=== PATIENT | female | born 1955 | race Two or more races ===

== ENCOUNTER → 2018-08-06 | Outpatient (CLI) | END | disposition home or self-care (01) ==

== ENCOUNTER → 2018-11-15 | Outpatient (CLI) | payer OTHER ==
[~2018-11-15] MED LIST: ASPI-1044 PO; ATEN50TA PO; GABA300C16 PO; LEVE100018 PO; LEVE500S8 PO; NAPR-685 PO; TYL500 PO
--- NOTE | 2018-11-15 10:27 | CONS ---
Date/Time of Note Date/Time of Note DATE: 11/15/18 TIME: 10:18 Assessment/Plan Assessment/Plan Hospital Course This is a 63-year-old female with end-stage arthritis of her right knee. This is a valgus deformity. She has failed conservative treatment including anti- inflammatories and injections and activity modification. She would like to proceed with surgery. She has already had her preoperative labs drawn yesterday. She is scheduled to see her PCP early next week. I would like her to follow-up next week to review her preoperative labs and preop clearance. At that time she will also get full length x-rays for preoperative planning. Plan: PCP note and labs should be faxed to our office for my review Patient should follow-up next Monday for preoperative appointment and full length x-rays. Plan for surgery generator Consultation Date/Type/Reason Admit Date/Time Date of Consultation: Nov 15, 2018 Reason for Consultation Right knee right knee pain Hx of Present Illness Is a 63-year-old female with a chief complaint of right knee pain. She was originally seen by my partner however secondary to scheduling issues her surgery needed to be significantly postponed and I was asked if I would take over her care. The pain began approximately years ago. The patients pain is in the medial and lateral aspect of the right knee. Pain is not radiating to the lower leg. The pain is rated as a 510/10. Patient denies complaints of numbness or tingling. The pain is exacerbated by climbing stairs and ambulation. Pain is not relieved by NSAID's. Patient has been taking naproxen on a p.r.n. basis as well as using ice. Duration: Years Injury: No Walking tolerance: Limited Limp: Yes Support: No Swelling: yes Crepitation: Yes Instability: No Stairs: Difficult Physical Therapy: No Injections: In the past. Last injection greater than 6 months ago with minimal relief. NSAIDs: Naproxen Prior surgery: No Back pain: No Hip pain: No Risk of AVN : No Patient denies fever, chills, shortness of breath, chest pain, nausea/vomiting, constipation, diarrhea, numbness, and tingling. Past Medical History Hypertension Stroke at least 20 years ago Seizure disorder Past Surgical History Past Surgical Hx: noncontributory Family History Significant Family History: no pertinent family hx Social History Alcohol Use: none Smoking Status: Never smoker Drug Use: none Exam/Review of Systems Vital Signs Vitals Weight: 198 pounds Height: 5 foot 3 inches BMI: 35.1 Temperature: 98.6 Heart Rate: 70 Blood Pressure: 140/68 Respiratory Rate: 12 Exam General: Alert, oriented x3. No Acute Distress. Heart: Regular rate and rhythm. Lungs: No respiratory distress. No accessory muscle use. Musculoskeletal: Right Knee This is a well developed obese female who is alert, oriented times three and in no apparent distress. Skin is intact over the right knee as well as the lower extremity with no abrasi ons, lacerations, or ulcerations. Observation of the patient's gait reveals an antalgic gait with Valgus thrust. Frontal plane alignment is valgus. Deformity is correctable. There is pain on palpation of medial and lateral joint line. The patient demonstrates grinding anteriorly with ROM. Range of motion: 5 extension to approximately 100 degrees of flexion. Collateral ligament testing reveals no instability with varus or valgus stress at 0 and 30 degrees of flexion. MCL with good endpoint. Negative Doug's and negative posterior drawer. Neurovascularly intact with 5/5 EHL/tibialis anterior/gastroc. Sensation intact to light touch in a sural, saphenous, deep peroneal, superficial peroneal, medial and lateral plantar nerve distribution. Palpable, symmetric dorsalis pedis and posterior tibial pulses in both lower extremities. Hip examination normal. Imaging Imaging The patient previously received a standard set of films today that were personally reviewed today. Imaging included a standing knee AP, PA flexion, merchant views and a dedicated lateral of the affected knee: There is valgus alignment of the knee. There is complete loss of joint space lateral compartment and moderate loss in the patellofemoral and medial co mpartment(s). There is osteophyte formation. There is subchondral sclerosis. There are subchondral cysts. Degenerative changes are most severe in the lateral compartment(s) WAI PÉREZ MD Nov 15, 2018 10:27
== END | disposition home or self-care (01) ==
LOC: HKI 08:51
PROVIDERS: ATTEND Orthopaedic Surgery Adult Reconstructive Orthopaedic Surgery
DX: M13.861 Other specified arthritis, right knee (principal); M21.061 Valgus deformity, not elsewhere classified, right knee
CPT/HCPCS: G0463

== ENCOUNTER → 2018-11-23 | Outpatient (CLI) | payer OTHER ==
--- NOTE | 2018-11-23 14:19 | CONS ---
Consult Date/Type/Reason Admit Date/Time Initial Consult Date Date/Time of Note DATE: 11/23/18 TIME: 14:16 Ajit Sal is here today with osteoarthritis of the right knee. The patient has been having problems for the last several years. The patient rates the pain 8/10. The patient has failed conservative therapy. The patient is here for a preoperative visit. Face to Face Evaluation For Home Health Care: This is to certify that after date of planned surgery patient will be in need of intermittent intermediate care, physical therapy and/or occupational therapy as patient will be home bound. This patient is under my care and I have authori zed the services on this plan of care and will periodically review the plan. Objective Exam General: Alert, oriented x3. No Acute Distress. Heart: Regular rate and rhythm. Lungs: No respiratory distress. No accessory muscle use. Musculoskeletal: Right Knee This is a well developed obese female who is alert, oriented times three and in no apparent distress. Skin is intact over the right knee as well as the lower extremity with no abrasions, lacerations, or ulcerations. Observation of the patient's gait reveals an antalgic gait with Valgus thrust. Frontal plane alignment is valgus. Deformity is correctable. There is pain on palpation of medial and lateral joint line. The patient demonstrates grinding anteriorly with ROM. Range of motion: 5 extension to approximately 100 degrees of flexion. Collateral ligament testing reveals no instability with varus or valgus stress at 0 and 30 degrees of flexion. MCL with good endpoint. Negative Doug's and negative posterior drawer. Neurovascularly intact with 5/5 EHL/tibialis anterior/gastroc. Sensation intact to light touch in a sural, saphenous, deep peroneal, superficial peroneal, medial and lateral plantar nerve distribution. Palpable, symmetric dorsalis pedis and posterior tibial pulses in both lower extremities. Hip examination normal. Assessment/Plan Hospital Course (Demo Recall) the patient has osteoarthritis of the right knee involving primarily the lateral compartment(s). The patient has failed conservative treatment. Medical Clearance pending. Preop labs reviewed and are okay. 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 The operative procedure was explained using diagrams and or three-dimensional models. The rehabilitation, the potential risks, benefits and alternatives were discussed at length. Specific risks discussed included but were not limited to excessive blood loss and the need for transfusion and therefore the risk of transmissible disease or transfusion reaction, deep infection and the potential need for repetitive debridements, implant removal, long-term antibiotic therapy, possibly requiring deep venous access, extensor mechanism complications, including subluxation or dislocation, disruption of the quadriceps or patellar tendon, fracture of the patella or avulsion of the tibial tuberosity, femoral, tibial or fibular fracture and the need for further surgery for fixation, neurovascular injury with temporary or permanent numbness, tingling, weakness or paralysis, arterial injury requiring surgery including possible amputation, deep venous thrombosis, pulmonary embolism and , persistent pain, weakness, or limp, late aseptic loosening and the need for revision, polyethylene wear- induced osteolysis and related problems, post-operative stiffness requiring closed manipulation, and finally, a wide variety of unanticipated medical problems. The opportunity to ask questions and address any concerns was provided. The patient would like to proceed with scheduling. Face to Face Evaluation for Home Health Care: This is to certify that after date of planned surgery patient will be in need of intermittent intermediate care, physical therapy and/or occupational therapy as patient will be home bound. This patient is under my care and I have authorized the services on this plan of care and will periodically review the plan. Plan: Right TKA VTE risk stratification: Average VTE prophylaxis: Aspirin 81 mg twice daily Diabetes management: None Pain control: standard Telemetry: No MRSA: Pending WAI PÉREZ MD Nov 23, 2018 14:19
--- NOTE | 2018-11-27 09:27 | RADRPT ---
PROCEDURE: Limited x-ray of both lower extremities. CLINICAL INDICATION: Bilateral leg pain. TECHNIQUE: Single frontal view of both lower extremities was obtained from the hips to the calves. COMPARISON: None. FINDINGS: Bone lengths are as follows: Right femur: 56 cm. Left femur: 59 cm. Right tibia: 49 cm. Left tibia: 47 cm. There is right knee valgus deformity. There is no deformity on the left. IMPRESSION: 1. Leg length discrepancy as described above. 2. Right knee valgus deformity. RPTAT: QQ .Mike Borden MD, MD Date Time Electronically viewed and signed by .Mike Borden MD, MD on 11/27/2018 09:27 .R/
== END | disposition home or self-care (01) ==
LOC: HKI 13:31
PROVIDERS: ATTEND Orthopaedic Surgery Adult Reconstructive Orthopaedic Surgery
DX: Z01.818 Encounter for other preprocedural examination (principal); M17.11 Unilateral primary osteoarthritis, right knee; E66.9 Obesity, unspecified
CPT/HCPCS: 77073; Z7500; 77077; G0463

== ENCOUNTER → 2018-12-10 | Outpatient (CLI) | payer OTHER ==
[~2018-12-10] MED LIST changes: -LEVE500S8 PO; -NAPR-685 PO
--- NOTE | 2018-12-10 18:34 | CONS ---
Consult Date/Type/Reason Admit Date/Time Initial Consult Date Date/Time of Note DATE: 12/10/18 TIME: 18:26 Subjective DOS: 11/27/2018 Procedure: Right TKA 2 weeks s/p right TKA who returns today for follow up. The patient is doing well overall. Pain is minimal. Denies F/C. Denies N/T. Denies any drainage from the incision. Narcotic Pain medication: Oxycodone twice a day Gait Aids: Walker Pain better than before surgery: Yes Pleased with outcome. Objective Vitals Weight: 190 pounds Height: 5 foot 3 inches Temperature: 97.9 Heart Rate: 84 Blood Pressure: 118/59 Respiratory Rate: 12 Exam General: Alert, oriented x3. No Acute Distress. Heart: Regular rate and rhythm. Lungs: No respiratory distress. No accessory muscle use. Right lower Extremity: Incision clean, dry, intact. No skin breakdown, no surrounding erythema. Sensation intact to light touch in a sural, saphenous, deep peroneal, superficial peroneal, medial and lateral plantar nerve distribution. Motor is intact, patient able to dorsiflex and plantarflex ankle and extend and flex great toe. Dorsalis Pedis pulse +2, Brisk capillary refill. Compartments are soft. ROM: Extension: 10 Flexion: 90 Varus/ Valgus Stability: Stable in extension, flexion, and throughout range of motion A/P Stability: Stable Gait: Moderate pace. Minimally antalgic. Walker for gait aid. Results/Medications Home Meds Active Scripts Gabapentin* (Gabapentin*) 300 Mg Capsule, 300 MG PO QHS for 30 Days, #30 CAP Prov:WAI PÉREZ MD 11/28/18 Aspirin Delayed Release (Aspirin Delayed Release) 81 Mg Tablet.dr, 81 MG PO BID for 42 Days, #84 TAB Prov:WAI PÉREZ MD 11/28/18 Acetaminophen* (Tylenol*) 500 Mg Tab, 1000 MG PO Q8 for 7 Days, #21 TAB Prov:WAI PÉREZ MD 11/28/18 Reported Medications Levetiracetam* (Keppra*) 1,000 Mg Tablet, 1000 MG PO BID, TAB 11/27/18 Atenolol* (Atenolol*) 50 Mg Tablet, 50 MG PO DAILY, #30 TAB 11/23/18 Imaging Xrays obtained in clinic today and personally reviewed by myself: AP and a dedicated lateral of the right knee demonstrates right knee s/p TKA. Components in good position and alignment. No signs of wear, osteolysis, lo osening, component failure, or fracture. No acute complications. Assessment/Plan Hospital Course (Demo Recall) 63-year-old female doing well 2 weeks s/p right TKA -Continue home physical therapy with a focus on gaining full extension. - DVT Prophylaxis: Aspirin 81 mg twice daily times 4 weeks - FU 4 weeks for repeat clinical and radiographic exam - Antibiotic dental prophylaxis for any cleaning or procedure WAI PÉREZ MD Dec 10, 2018 18:34
--- NOTE | 2018-12-11 14:08 | RADRPT ---
PROCEDURE: Right knee radiographs. CLINICAL INDICATION: Right knee pain. Postop. TECHNIQUE: Two views. Frontal and lateral. COMPARISON: 11/27/2018 FINDINGS: There is no fracture or dislocation. Fluid is present in the right knee joint and there are anterior skin kwasi. There is a total right knee constrained arthroplasty which appears satisfactory. There is no lytic or blastic lesion. IMPRESSION: 1. Satisfactory postoperative appearance of the right knee. RPTAT: QQ .Mike Borden MD, MD Date Time Electronically viewed and signed by .Mike Borden MD, MD on 12/11/2018 14:08 .R/
== END | disposition home or self-care (01) ==
LOC: HKI 09:53
PROVIDERS: ATTEND Orthopaedic Surgery Adult Reconstructive Orthopaedic Surgery
DX: Z09 Encounter for follow-up examination after completed treatment for conditions other than malignant neoplasm (principal); Z96.651 Presence of right artificial knee joint

== ENCOUNTER → 2019-01-17 | Outpatient (CLI) | payer OTHER | END | disposition home or self-care (01) | LOC: HKI 13:58 | PROVIDERS: ATTEND Orthopaedic Surgery Adult Reconstructive Orthopaedic Surgery | DX: M25.572 Pain in left ankle and joints of left foot (principal); M25.571 Pain in right ankle and joints of right foot | CPT/HCPCS: 73564 ==

== ENCOUNTER → 2019-02-06 | Outpatient (CLI) | payer OTHER ==
--- NOTE | 2019-02-06 13:28 | CONS ---
Consult Date/Type/Reason Admit Date/Time Initial Consult Date Date/Time of Note DATE: 02/06/19 TIME: 13:24 Subjective DOS: 11/27/2018 Procedure: Right TKA 9 weeks s/p right TKA who returns today for scheduled left knee steroid injection for end-stage left knee osteoarthritis. In regards to the right total knee arthroplasty patient is doing well overall, however, she has unfortunately not started outpatient physical therapy. Pain is none in the right knee and 8/10 in the left knee. Denies F/C. Denies N/T. Denies any drainage from the incision. Narcotic Pain medication: None Gait Aids: Walker Pain better than before surgery: Yes Pleased with outcome. Objective Vitals Weight: 198 pound Height: 5 foot 3 inches Temperature: 90.4 Heart Rate: 69 Blood Pressure: 129/59 Respiratory Rate: 12 Exam General: Alert, oriented x3. No Acute Distress. Heart: Regular rate and rhythm. Lungs: No respiratory distress. No accessory muscle use. Right lower Extremity: Incision healed. No skin breakdown, no surrounding erythema. Sensation intact to light touch in a sural, saphenous, deep peroneal, superficial peroneal, medial and lateral plantar nerve distribution. Motor is intact, patient able to dorsiflex and plantarflex ankle and extend and flex great toe. Dorsalis Pedis pulse +2, Brisk capillary refill. Compartments are soft. ROM: Extension: 0 Flexion: 110 Varus/ Valgus Stability: Stable in extension, flexion, and throughout range of motion A/P Stability: Stable Left lower extremity: Skin intact. Sensation intact to light touch in a sural, saphenous, deep peroneal, superficial peroneal, medial and lateral plantar nerve distribution. Motor is intact, patient able to dorsiflex and plantarflex ankle and extend and flex great toe. Dorsalis Pedis pulse +2, Brisk capillary refill. Compartments are soft. Results/Medications Home Meds Active Scripts Gabapentin* (Gabapentin*) 300 Mg Capsule, 300 MG PO QHS for 30 Days, #30 CAP Prov:WAI PÉREZ MD 11/28/18 Aspirin Delayed Release (Aspirin Delayed Release) 81 Mg Tablet.dr, 81 MG PO BID for 42 Days, #84 TAB Prov:WAI PÉREZ MD 11/28/18 Acetaminophen* (Tylenol*) 500 Mg Tab, 1000 MG PO Q8 for 7 Days, #21 TAB Prov:WAI PÉREZ MD 11/28/18 Reported Medications Levetiracetam* (Keppra*) 1,000 Mg Tablet, 1000 MG PO BID, TAB 11/27/18 Atenolol* (Atenolol*) 50 Mg Tablet, 50 MG PO DAILY, #30 TAB 11/23/18 Assessment/Plan Hospital Course (Demo Recall) 63-year-old female 9 weeks status post right primary total knee arthroplasty and end-stage arthritis left knee. Overall she is doing very well for her right knee arthroplasty. However she has not start physical therapy and is a little stiff. In regards to her left knee will proceed with the planned left knee steroid injection. Plan: Left knee steroid injection Physical therapy for right total knee arthroplasty Dental prophylaxis for right knee total arthroplasty Follow-up in 3 weeks with x-ray for formal follow-up for right total knee after physical therapy starts. Assessment/Plan (Daily) Left knee steroid injection procedure: Risks and benefits of steroid injection reviewed with patient. The risks include infection, failure, pain, swelling, nerve/tendon/ligament damage. The patient verbalized understanding and verbal consent was obtained prior to procedure. The left knee was prepped in a sterile fashion with alcohol and betadine the site of injection was confirmed. Anteromedial approach was used. The skin and capsule was anesthetized with 3mL 1% lidocaine. The left knee was injected with 2mL 1% lidocaine, 2mL 0.25% bupivacaine, 40mg Depo-Medrol. Injection flowed freely. Good hemostasis was achieved and no complications noted. The patient tolerated the procedure well. Limit activity and ice for 24-48 hours WAI PÉREZ MD Feb 06, 2019 13:28
== END | disposition home or self-care (01) ==
LOC: HKI 10:24
PROVIDERS: ATTEND Orthopaedic Surgery Adult Reconstructive Orthopaedic Surgery
DX: M17.11 Unilateral primary osteoarthritis, right knee (principal)
CPT/HCPCS: 20610; Z7500; Z7610; G0463

== ENCOUNTER → 2019-02-27 | Outpatient (CLI) | payer OTHER ==
--- NOTE | 2019-02-27 12:31 | CONS ---
Consult Date/Type/Reason Admit Date/Time Initial Consult Date Date/Time of Note DATE: 02/27/19 TIME: 12:24 Subjective DOS: 11/27/2018 Procedure: Right TKA 3 months s/p right TKA who returns today for follow up. The patient is doing well overall. Pain is none. Denies F/C. Denies N/T. Denies any drainage from the incision. Narcotic Pain medication: None Gait Aids: None Pain better than before surgery: Yes Pleased with outcome. She also comes in today to follow-up for her left knee. Last visit approximately 3 weeks ago she had a left knee steroid injection. This provided some relief but was not as great as she hoped. She continues to have pain. At times her pain is as great as 8/10 especially at the end of the day. This does interfere with her daily life. She feels her left knee is holding her back now that her right knee is doing much better. She would like to discuss surgery for her left knee. Objective Vitals Weight: 185 Height: 5 feet 3 inches Temperature: 98.4 Heart Rate: 67 Blood Pressure: 110/55 Respiratory Rate: 12 Exam General: Alert, oriented x3. No Acute Distress. Heart: Regular rate and rhythm. Lungs: No respiratory distress. No accessory muscle use. Right lower Extremity: Incision well-healed. No skin breakdown, no surrounding erythema. Sensation intact to light touch in a sural, saphenous, deep peroneal, superficial peroneal, medial and lateral plantar nerve distribution. Motor is intact, patient able to dorsiflex and plantarflex ankle and extend and flex great toe. Dorsalis Pedis pulse +2, Brisk capillary refill. Compartments are soft. ROM: Extension: 0 Flexion: 125 Varus/ Valgus Stability: Stable in extension, flexion, and throughout range of motion A/P Stability: Stable Gait: Moderate pace. antalgic on left knee. No gait aid. Left Knee Skin is intact over the left knee as well as the lower extremity with no abrasions, lacerations, or ulcerations. Observation of the patient's gait reveals an antalgic gait with Mild varus thrust. Frontal plane alignment is mild varus. There is pain on palpation of medial and lateral joint line. The patient demonstrates grinding anteriorly with ROM. Range of motion: 0 extension to approximately 130 degrees of flexion. Collateral ligament testing reveals no instability with varus or valgus stress at 0 and 30 degrees of flexion. Negative Doug's and negative posterior drawer. Neurovascularly intact with 5/5 EHL/tibialis anterior/gastroc. Sensation intact to light touch in a sural, saphenous, deep peroneal, superficial peroneal, medial and lateral plantar nerve distribution. Palpable, symmetric dorsalis pedis and posterior tibial pulses in both lower extremities. Hip examination normal. Results/Medications Home Meds Active Scripts Gabapentin* (Gabapentin*) 300 Mg Capsule, 300 MG PO QHS for 30 Days, #30 CAP Prov:WAI PÉREZ MD 11/28/18 Aspirin Delayed Release (Aspirin Delayed Release) 81 Mg Tablet.dr, 81 MG PO BID for 42 Days, #84 TAB Prov:WAI PÉREZ MD 11/28/18 Acetaminophen* (Tylenol*) 500 Mg Tab, 1000 MG PO Q8 for 7 Days, #21 TAB Prov:WAI PÉREZ MD 11/28/18 Reported Medications Levetiracetam* (Keppra*) 1,000 Mg Tablet, 1000 MG PO BID, TAB 11/27/18 Atenolol* (Atenolol*) 50 Mg Tablet, 50 MG PO DAILY, #30 TAB 11/23/18 Imaging Xrays obtained in clinic today and personally reviewed by myself: Bilateral AP and merchant views and a lateral of the right and left knee demonst rates right knee s/p TKA. Components in good position and alignment. No signs of wear, osteolysis, loosening, component failure, or fracture. No acute complications. There is severe tricompartmental osteoarthritis of the left knee most severely involving the medial and patellofemoral compartment. There is subchondral sclerosis and cysts. Varus alignment Assessment/Plan Hospital Course (Demo Recall) 61-year-old female doing well 3 months s/p right TKA. Her left knee continues to cause her significant difficulty. The steroid injection was mildly helpful but is not providing as much relief as the patient is hoped. The patient like to proceed with planning for her left total knee arthroplasty. -Begin planning process for left total knee arthroplasty. The surgery will need to be at least 3 months from her injection. Surgery will likely be in May which works well for the patient as well - DVT Prophylaxis: Discontinue - For the right knee f/u in 1 year for repeat clinical and radiographic exam - Antibiotic dental prophylaxis for any cleaning or procedure WAI PÉREZ MD February 27, 2019 12:31
--- NOTE | 2019-02-28 14:10 | RADRPT ---
PROCEDURE: XR knees CLINICAL INDICATION: Pain TECHNIQUE: Three views of the bilateral knees were obtained. COMPARISON: 01/17/2019 FINDINGS: There is no acute fracture dislocation. Again noted are postsurgical changes of total right knee arth roplasty. The hardware is intact and unchanged in alignment. There are moderate to severe degenerativ e changes of the left knee most prominent along the medial and patellofemoral compartments. The bone mineralization is diffusely decreased. There is a small left knee joint effusion. No right knee joint effusion is seen. IMPRESSION: 1. Stable postsurgical changes of total right knee arthroplasty, well-aligned. 2. Moderate to severe degenerative changes of the left knee, unchanged. RPTAT: AAEE Physician Sarahy Date Time Electronically viewed and signed by Physician Sarahy on 02/28/2019 14:09 RF/
== END | disposition home or self-care (01) ==
LOC: HKI 09:49
PROVIDERS: ATTEND Orthopaedic Surgery Adult Reconstructive Orthopaedic Surgery
DX: Z09 Encounter for follow-up examination after completed treatment for conditions other than malignant neoplasm (principal); Z96.651 Presence of right artificial knee joint
CPT/HCPCS: 73562; Z7500; G0463